=== PATIENT | male | born 1985 | race Caucasian/White ===

== ENCOUNTER 2016-07-20 09:00 | Emergency (ER) | payer SELFPAY ==
[2016-07-20 09:12] VITALS: RESP 18; TEMP 98
[2016-07-20] MEDS ORDERED: KETOROLAC TROMETHAMINE 30 MG/ML SOL IM ONE (09:17)
[2016-07-20] MEDS ORDERED: APAP/HYDROCODONE 325/5 TAB PO ONE (09:17)
[2016-07-20] MEDS ORDERED: BACITRACIN 500 U/GM OIN TOP ONE ×2 (09:18→09:21)
[2016-07-20] MEDS ORDERED: APAP/HYDROCODONE 325/5 TAB ONE (09:21)
[2016-07-20] MEDS ORDERED: KETOROLAC TROMETHAMINE 30 MG/ML SOL ONE (09:21)
[2016-07-20] MEDS ORDERED: TDAP VACCINE 0.5 ML SUS IM ONE ×2 (09:36→09:38)
[2016-07-20 10:29] VITALS: O2SAT 97
[2016-07-20 10:30] VITALS: BP 102/85; PULSE 103
== END 2016-07-20 10:25 | disposition home or self-care (01) | DRG 935 ==
LOC: ED 09:00
DX: T24.121A Burn of first degree of right knee, initial encounter (principal); T31.0 Burns involving less than 10% of body surface; X12.XXXA Contact with other hot fluids, initial encounter
CPT/HCPCS: 90471; 90715; 96372; 99284; J1885; A6402; A6446

== ENCOUNTER 2016-10-03 17:41 | Emergency (ER) | payer OTHER ==
[2016-10-03] MEDS ORDERED: EPINEPHRINE 1:10,000 PREFILL 0.1 MG/ML SOL ONE (17:46)
[2016-10-03] MEDS ORDERED: SOLUMEDROL 125 MG/2 ML 125 MG/2 ML PDS ONE (17:51)
[2016-10-03 18:01] VITALS: TEMP 98.2
[2016-10-03] MEDS ORDERED: RANITIDINE HYDROCHLORIDE 25 MG/ML SOL ONE (18:06)
[2016-10-03] MEDS ORDERED: DIPHENHYDRAMINE 50 MG/ML SOL ONE (18:06)
[2016-10-03] MEDS ORDERED: DIPHENHYDRAMINE 50 MG/ML SOL IV ONE (18:08)
[2016-10-03] MEDS ORDERED: RANITIDINE HYDROCHLORIDE 25 MG/ML SOL IV ONE (18:09)
[2016-10-03] MEDS ORDERED: EPINEPHRINE 1:10,000 PREFILL 0.1 MG/ML SOL SC PRN (18:10)
[2016-10-03] MEDS ORDERED: EPINEPHRINE 1:1000 AMP 1 MG/ML SOL ONE (18:15)
[2016-10-03] MEDS ORDERED: SOLUMEDROL 125 MG/2 ML 125 MG/2 ML PDS IV ONE (18:17)
[2016-10-03] MEDS ORDERED: EPINEPHRINE 1:1000 AMP 1 MG/ML SOL IM PRN (18:18)
[2016-10-03 19:18] VITALS: BP 160/79; PULSE 121; RESP 17; O2SAT 97
== END 2016-10-03 18:58 | disposition short-term general hospital (02) ==
LOC: ED 17:41
DX: T78.3XXA Angioneurotic edema, initial encounter (principal)
CPT/HCPCS: 99291 ×2; J1200; J2780; J2930

== ENCOUNTER 2017-08-26 09:54 | Day surgery (SDC) | payer OTHER ==
[~2017-08-26 09:54] MED LIST: LIDOCAINE HCL 1% MPF SOL ONE; PROPOFOL 500 MG/50 ML EMU IV ONE
[2017-08-26 12:27] VITALS: BP 107/71; PULSE 76; RESP 20; TEMP 97; O2SAT 100
== END 2017-08-26 12:40 | disposition home or self-care (01) ==
LOC: SURG 09:54
PROVIDERS: ATTEND Surgery
DX: K62.5 Hemorrhage of anus and rectum (principal)
CPT/HCPCS: J2001; J2704

== ENCOUNTER 2017-12-08 00:45 | Emergency (ER) | payer OTHER ==
[2017-12-08 00:57] VITALS: TEMP 96.8
[2017-12-08] MEDS ORDERED: LIDOCAINE HCL 1% MPF 30 SOL ONE (01:06)
[2017-12-08] MEDS ORDERED: BACITRACIN 500 U/GM OIN TOP ONE ×2 (01:32→01:35)
[2017-12-08] MEDS ORDERED: APAP/OXYCODONE 325/5 TAB PO ONE (01:33)
[2017-12-08] MEDS ORDERED: APAP/OXYCODONE 325/5 TAB ONE (01:34)
[2017-12-08 02:08] VITALS: BP 125/68; PULSE 106; RESP 20; O2SAT 96
[2017-12-11] MEDS ORDERED: LIDOCAINE HCL 1% MPF 30 SOL INFIL ONE (07:17)
== END 2017-12-08 01:55 | disposition home or self-care (01) ==
LOC: ED 00:45
DX: S61.303A Unspecified open wound of left middle finger with damage to nail, initial encounter (principal); W45.8XXA Other foreign body or object entering through skin, initial encounter
CPT/HCPCS: 99283; A6402; A9270-GY; J2001